=== PATIENT | female | born 1960 | race Caucasian/White ===

== ENCOUNTER → 2022-11-03 15:21 | Outpatient (CLI) | payer OTHER, SELFPAY ==
--- NOTE | ~2022-11-03 | MR_ITS ---
EXAMINATION: MR knee RT wo con DATE: 11/03/2022 16:13 INDICATION: Pain in right knee TECHNIQUE: Magnetic resonance imaging (MRI) of the right knee was performed without intravenous contr ast. Sequences included axial PD-weighted FS FSE, coronal PD-weighted FSE and PD-weighted FS FSE, sag ittal PD-weighted FSE, and sagittal T2-weighted FS FSE. COMPARISON: None. FINDINGS: Medial compartment: Mild diffuse thinning of cartilage with multiple areas of full-thickness cartilage signal abnormality . Moderate osteophytosis. Intact meniscus. Lateral compartment: Moderate diffuse cartilage thinning with a 5 mm full-thickness defect on the weightbearing surface of the LFC. Complex tear of the anterior horn of the lateral meniscus. Moderate osteophytosis. Patellofemoral compartment: Severe full-thickness cartilage loss and joint space narrowing involving the lateral facet. Moderate osteophytosis. Intact retinacula. Ligaments and tendons: Mild thickening of the proximal MCL likely chronic partial tear. Abnormal signal and thickening at th e origin of the LCL. The ACL and PCL are intact. The remaining flexor and extensor tendons are intact . Fluid: Moderate volume joint fluid. Moderate-sized Guaman's cyst. Osseous/other: Focal bone marrow edema in the lateral tibial plateau. No suspicious marrow signal. IMPRESSION: 1. Complex tear of the anterior horn, lateral meniscus. 2. Partial LCL tear. 3. 5 mm full-thickness cartilage defect on the weightbearing surface of the LFC. 4. Tricompartmental osteoarthritic arthritis, severe in the patellofemoral compartment. 5. Focal marrow edema in the lateral aspect of the lateral tibial plateau. Reviewed, dictated and finalized at location K. IMPRESSION: 1. Complex tear of the anterior horn, lateral meniscus. 2. Partial LCL tear. 3. 5 mm full-thickness cartilage defect on the weightbearing surface of the LFC . 4. Tricompartmental osteoarthritic arthritis, severe in the patellofemoral comp artment. 5. Focal marrow edema in the lateral aspect of the lateral tibial plateau.
== END ==
PROVIDERS: PCP Hospitalist
DX: M25.561 Pain in right knee (principal); S83.271A Complex tear of lateral meniscus, current injury, right knee, initial encounter; S83.421A Sprain of lateral collateral ligament of right knee, initial encounter; M17.11 Unilateral primary osteoarthritis, right knee; M79.89 Other specified soft tissue disorders
CPT/HCPCS: 73721